=== PATIENT | male | born 1990 | race Caucasian/White ===

== ENCOUNTER 2017-06-09 20:14 | Emergency (ER) | payer OTHER ==
[~2017-06-09] VITALS: Ht 198.1 cm; Wt 104.5 kg
[~2017-06-09 20:14] MED LIST: MAXALT
[2017-06-09 20:27] VITALS: BP 139/97; PULSE 82; RESP 16; O2SAT 100
== END 2017-06-09 20:56 | disposition left against medical advice (07) ==
LOC: SED 20:14
DX: K04.7 Periapical abscess without sinus (principal); Z53.21 Procedure and treatment not carried out due to patient leaving prior to being seen by health care provider